=== PATIENT | male | born 1980 | race Caucasian/White ===

== ENCOUNTER → 2024-11-10 | Outpatient (CLI) | payer OTHER, SELFPAY ==
--- NOTE | 2024-11-10 11:47 | RAD_ITS ---
PROCEDURE: FINGER(S) MIN 2 VIEWS REASON FOR EXAM: Finger injury. TECHNIQUE: 3 view(s) of the left 4th finger COMPARISON: None RAD/Finger(s) Min 2 Views IMPRESSION: No radiopaque foreign body is seen. Mild degenerative changes are seen at left 4th distal interphalangeal joint. No fracture site is clearly seen. If clinical concern persists, short-term follow-up imaging may be obtained to r ule out a currently occult fracture. Reading Location: [id number]
== END | disposition home or self-care (01) ==
LOC: MTRAD 11:47
PROVIDERS: Referring Provider Physician Assistant; Visit Provider Physician Assistant
DX: S69.90XA Unspecified injury of unspecified wrist, hand and finger(s), initial encounter (principal); X58.XXXA Exposure to other specified factors, initial encounter
CPT/HCPCS: 73140